=== PATIENT | female | born 1970 | race African-American/Black ===

== ENCOUNTER 2017-10-16 15:40 | Emergency (ER) | payer MEDICAID ==
[~2017-10-16] VITALS: Ht 160 cm; Wt 63.5 kg
--- NOTE | 2017-10-16 16:58 | Diagnostic Imaging Report ---
Indication: Neck Pain Findings: 3 views of the cervical spine were obtained. There is no acute fracture identified. Alignment is normal. The open-mouth odontoid view shows an intact dens and good alignment of the lateral masses with respect to the body of C2. There is no soft tissue swelling. Impression: Negative cervical spine examination.
--- NOTE | 2017-10-16 17:17 | Emergency Room Report ---
History of Present Illness General Chief Complaint: Pain Source: Patient Present Illness HPI 46 YO Female presents to the ED c/o Left sided neck pain described as "soreness, and tightness" and "Spasms" pt. reports 10/10 in severity with radiation to the left upper arm. pt. denies recent Trauma or fall. Patient reports history of spider bite on the upper back 2 weeks ago. Patient denies fevers, chills, rashes. Patient denies recent strenuous activity. Patient reports she has been using ice packs with mild to no relief. She denies unilateral weakness in the upper extremities. Denies numbness tingling or loss of sensation or gross motor movements of the extremities, incontinence of bowel or bladder. Denies CP, Palpitations, LOC, AMS, dizziness, Changes in Vision, Sensation, paresthesias, or a sudden severe headache. Denies cardiac hx, reports hx of "dynamic disk in the back". Allergies: Coded Allergies: LATEX (Verified Allergy, Unknown, 10/16/17) Patient History Past Medical History: see triage record Past Surgical History: none Pertinent Family History: none Last Menstrual Period: 09/11/17 Now: No Reviewed Nursing Documentation: PMH: Agreed, PSxH: Agreed Nursing Documentation-PMH Past Medical History: No Stated History Review of Systems All Other Systems: negative except mentioned in HPI Physical Exam Vital Signs Date Time Temp Pulse Resp B/P (MAP) Pulse Ox O2 Delivery O2 Flow Rate FiO2 10/16/17 15:51 98.7 70 18 117/78 97 Room Air 98.8 Sp02 EP Interpretation: reviewed, normal General Appearance: no apparent distress, alert, GCS 15, non-toxic Head: normocephalic, atraumatic Eyes: bilateral eye normal inspection, bilateral eye PERRL ENT: hearing grossly normal, normal voice Neck: full range of motion, no bony tend, tender lateral - left lateral ttp. no midline TTP, no step-offs, FROM of neck Respiratory: chest non-tender, lungs clear, normal breath sounds, speaking full sentences Cardiovascular #1: regular rate, rhythm, normal capillary refill Musculoskeletal: back normal, gait/station normal, normal range of motion, tender - Left lateral upper back, neck and shoulder TTP, FROM with pain. no obvious deformities. Neurologic: alert, oriented x3, responsive, motor strength/tone normal, sensory intact, speech normal, grossly normal Psychiatric: judgement/insight normal Skin: normal color, no rash, warm/dry, well hydrated Lymphatic: no adenopathy Medical Decision Making PA Attestation Dr. Ruelas is my supervising Physician whom patient management has been discussed with. Diagnostic Impression: Primary Impression: Cervical paraspinal muscle spasm Additional Impression: Muscle pain, cervical ER Course 46 YO Female presents to the ED c/o Left sided neck pain described as "soreness, and tightness" and "Spasms" pt. reports 10/10 in severity with radiation to the left upper arm. pt. denies recent Trauma or fall. Patient reports history of spider bite on the upper back 2 weeks ago. Patient denies fevers, chills, rashes. Patient denies recent strenuous activity. Patient reports she has been using ice packs with mild to no relief. She denies unilateral weakness in the upper extremities. Denies numbness tingling or loss of sensation or gross motor movements of the extremities, incontinence of bowel or bladder. Denies CP, Palpitations, LOC, AMS, dizziness, Changes in Vision, Sensation, paresthesias, or a sudden severe headache. Denies cardiac hx, reports hx of "dynamic disk in the back". Ddx considered but are not limited to Fracture, dislocation, contusion, epidural abscess, Sprain/Strain/Spasm Vital signs: are WNL, pt. is afebrile H&PE are most consistent with muscle spasm, ORDERS: none required at this time. ED INTERVENTIONS: -Soma PO -Motrin PO DISCHARGE: At this time pt. is stable for d/c to home. Will provide printed patient care instructions, and any necessary prescriptions. Care plan and follow up instructions have been discussed with the patient prior to discharge. Other X-Ray Diagnostic Results Other X-Ray Diagnostic Results : X-Ray ordered: C-Spine # of Views/Limited Vs Complete: 3 View Indication: Pain EP Interpretation: Yes PA Xray: Interpretation reviewed, by supervising MD, and agrees with findings. Interpretation: no dislocation, no soft tissue swelling, no fractures Impression: No acute disease Electronically Signed by: Josseline Cox PA-C Last Vital Signs Date Time Temp Pulse Resp B/P (MAP) Pulse Ox O2 Delivery O2 Flow Rate FiO2 10/16/17 16:32 98.7 10/16/17 15:51 70 18 117/78 97 Room Air Disposition: HOME, SELF-CARE Condition: Stable Scripts Ibuprofen* (MOTRIN*) 600 Mg Tablet 600 MG ORAL THREE TIMES A DAY, #20 TAB 0 Refills Prov: Josseline Cox 10/16/17 Lidocaine (Lidoderm) 1 Each Adh..patch 1 PATCH TOPIC DAILY, #30 PATCH 0 Refills Patch(es) may remain in place for up to 12 hours in any 24-hour period. Prov: Josseline Cox 10/16/17 Methocarbamol* (ROBAXIN*) 500 Mg Tablet 1000 MG PO TID, #42 TAB 0 Refills Prov: Josseline Cox 10/16/17 Referrals: [facility],REFERRING (PCP) Departure Forms: Return to Work Return to Work Date: Oct 21, 2017 Work Restrictions: No Prolonged Standing Other Restrictions: light duty, limited use of left arm x 1 week. Return to Full Activity: Oct 28, 2017 Patient Instructions: Muscle Cramps and Spasms, Muscle Pain, Adult Additional Instructions: Take medications as directed. Follow up with a Primary Care Provider in 3-5 days, even if your symptoms have resolved. --Please review list of primary care clinics, if you do not already have a primary care provider Return sooner to ED if new symptoms occur, or current symptoms become worse. Do not drink alcohol, drive, or operate heavy machinery while taking Robaxin / Muscle Relaxers as this may cause drowsiness. - Please note that this Emergency Department Report was dictated using [employer] marketing analyst technology software, occasionally this can lead to erroneous entry secondary to interpretation by the dictation equipment. Josseline Cox Oct 16, 2017 17:17
[2017-10-16] MEDS ORDERED: ROBAXIN500 MG PO (17:18)
[2017-10-16] MEDS ORDERED: LIDODERM700 M1 TOPIC (17:18)
[2017-10-16] MEDS ORDERED: IBUPROFEN600 MG ORAL (17:18)
[2017-10-16 17:35] VITALS: BP 112/75
== END 2017-10-16 17:35 | disposition home or self-care (01) ==
LOC: EMR 16:25
DX: M62.838 Other muscle spasm (principal); M54.2 Cervicalgia; Z91.040 Latex allergy status
CPT/HCPCS: 72040; 99284